=== PATIENT | male | born 1960 | race Caucasian/White ===

== ENCOUNTER 2019-12-04 10:05 | Outpatient (CLI) | payer OTHER, SELFPAY ==
--- NOTE | ~2019-12-04 | XR_ITS ---
EXAMINATION:XR cervical spine 4-5V DATE: 12/04/2019 10:40 INDICATION: Rheumatoid arthritis with rheumatoid factor, neck pain TECHNIQUE: AP, lateral, lateral swimmers and odontoid views of the cervical spine are provided. COMPARISON: None FINDINGS: There are bridging osteophytes at multiple levels in the spine, consistent with diffuse idi opathic skeletal hyperostosis (DISH). The odontoid is intact. No fracture is identified. Vertebral finn dy heights and disk spaces are normal. Prevertebral soft tissues are normal. There is moderate to sev ere multilevel facet osteoarthritis and mild to moderate multilevel uncovertebral joint osteoarthriti s. IMPRESSION: 1. Diffuse idiopathic skeletal hyperostosis and mild spondylosis of the cervical spine. Reviewed, dictated and finalized at location A. IMPRESSION: 1. Diffuse idiopathic skeletal hyperostosis and mild spondylosis of the cervica l spine.
--- NOTE | ~2019-12-04 | XR_ITS ---
EXAMINATION: XR hand BI arthritis min 3V DATE: 12/04/2019 10:40 INDICATION: Unspecified osteoarthritis, unspecified site. TECHNIQUE: 4 views of the right hand and 4 views of the left hand on a total of 7 radiographs were ob tained. COMPARISON: None. FINDINGS: RIGHT HAND: Bone alignment is normal. No fracture. There is mild osteoarthritis of distal radioulnar joint, triscaphe joint, first carpometacarpal joint, and most of the interphalangeal joints and metac arpophalangeal joints. There is moderate osteoarthritis of third distal interphalangeal joint and sec ond metacarpophalangeal joint. LEFT HAND: Bone alignment is normal. No acute fracture. There is an old healed fracture deformity of tuft of fifth distal phalanx. There is mild osteoarthritis of triscaphe joint, first carpometacarpal joint, and most of the metacarpophalangeal joints and interphalangeal joints. IMPRESSION: 1. Polyarticular osteoarthritis. Reviewed, dictated and finalized at location A.
[2019-12-04 10:49] LABS: Hematocrit 46.2 % (42.0-52.0); Hemoglobin 15.4 g/dL (14.0-18.0); Mean Corpuscular HGB Conc 33.3 g/dl (32-36); Mean Corpuscular Hemoglobin 28.1 pg (26-34); Mean Corpuscular Volume 84.3 fl (80-100); Mean Platelet Volume 9.7 fl (7.4-10.4); Platelet Count Result 239 k/mm3 (150-375); Red Blood Count 5.48 M/mm3 (4.6-6.20); Red Cell Distribution Width 13.6 % (11.5-14.5); White Blood Count 7.8 K/mm3 (4.5-10.0)
[2019-12-04 11:08] LABS: Alanine Aminotransferase 30 U/L (4-50); Albumin Level 4.2 g/dL (3.5-5.1); Alkaline Phosphatase 61 U/L (38-126); Aspartate Amino Transferase 29 U/L (17-59); Bilirubin,Total 0.5 mg/dL (0.2-1.3); Blood Urea Nitrogen 13 mg/dL (9-20); CRP 1.9 mg/dL (<1.0); Calcium 8.9 mg/dL (8.4-10.2); Carbon Dioxide 26 mmol/L (22-30); Chloride 104 mmol/L (98-107); Estimated Glomerular Filt Rate > 60; Glucose 164 mg/dL (75-110); Potassium 3.9 mmol/L (3.4-5.0); Sodium 139 mmol/L (137-145); Uric Acid 6.1 mg/dL (3.5-8.5)
[2019-12-04 11:20] LABS: Erythrocyte Sedimentation Rate 16 mm/hr (0-20)
[2019-12-06 21:45] LABS: Anti Cyclic Citrullinated Pept 52 Units (<20)
[2019-12-07 02:40] LABS: Angiotensin Converting Enzyme 13 U/L (9-67)
[2019-12-07 10:47] LABS: HLA B27 Negative (Negative)
== END 2019-12-04 10:06 | disposition home or self-care (01) ==
PROVIDERS: PCP Internal Medicine; Visit Provider Internal Medicine
DX: M05.79 Rheumatoid arthritis with rheumatoid factor of multiple sites without organ or systems involvement (principal); M47.892 Other spondylosis, cervical region; M19.041 Primary osteoarthritis, right hand; M19.042 Primary osteoarthritis, left hand
CPT/HCPCS: 36415; 72050; 73130; 80053; 82164; 84550; 85027; 85652; 86140; 86200; 86812